=== PATIENT | male | born 1975 | race Caucasian/White ===

== ENCOUNTER 2018-02-14 16:50 | Emergency (ER) | payer MEDICAID ==
[~2018-02-14] VITALS: Ht 170.2 cm; Wt 74.1 kg
--- NOTE | 2018-02-14 18:04 | NUR ---
PT TO ROOM FROM LOBBY
[2018-02-14 18:21] VITALS: BP 125/79
--- NOTE | 2018-02-14 18:25 | NUR ---
first contact with pt. pt c/o upper middle abd pain with nausea since noon today. pt states "it might be hernia." pt denies v/d/gutierrez at this time. small about [id number] rounded bulge noted on right above umblical on abd area. normoactive bowel sound noted on all 4 quadrants. pt aox4. resps even and unlabored. bp and spo2 monitors in place. call light within reach.
--- NOTE | 2018-02-14 18:57 | NUR ---
BREAK RN: DR. COUCH IN TO DISCUSS POC WITH PT.
== END 2018-02-14 19:17 | disposition home or self-care (01) ==
LOC: ED 18:54
DX: S30.1XXA Contusion of abdominal wall, initial encounter (principal); X58.XXXA Exposure to other specified factors, initial encounter; Y93.89 Activity, other specified; Y92.89 Other specified places as the place of occurrence of the external cause; Y99.8 Other external cause status
CPT/HCPCS: 99283